=== PATIENT | female | born 1960 ===

== ENCOUNTER → 2017-06-17 | Outpatient (CLI) | payer OTHER ==
[~2017-06-17] VITALS: Ht 152.4 cm; Wt 64.4 kg
[~2017-06-17] MED LIST: SIMVASTATIN10 MG; SYNTHROID50 MCG
== END | disposition home or self-care (01) ==
LOC: PPHC 10:13
DX: R05 Cough (principal); R09.81 Nasal congestion; J06.9 Acute upper respiratory infection, unspecified; J02.9 Acute pharyngitis, unspecified; R11.11 Vomiting without nausea; R11.2 Nausea with vomiting, unspecified; J11.1 Influenza due to unidentified influenza virus with other respiratory manifestations; R50.9 Fever, unspecified